=== PATIENT | male | born 1975 | race American Indian/Alaskan Native ===

== ENCOUNTER 2021-08-02 12:25 | Outpatient (CLI) | payer BC ==
--- NOTE | 2021-08-02 16:50 | XRay Report ---
XR chest routine 2V INDICATION / CLINICAL INFORMATION: ELEVATED BP. COMPARISON: None available. FINDINGS: SUPPORT DEVICES: None. HEART /PULMONARY VASCULATURE: No significant abnormality. LUNGS / PLEURA: No significant pulmonary or pleural abnormality. No pneumothorax. ADDITIONAL FINDINGS: No significant additional findings. IMPRESSION: 1. No acute findings. Signer Name: John Coates MD Signed: 08/02/2021 4:45 PM Workstation Name: [id number]
--- NOTE | 2021-08-03 10:10 | Electrocardiograph Report ---
[facility] Test Date: 2021-08-02 Test Time: 13:07:44 Pat Name: IRVING ISAACS Department: Room: Gender: M Infant Babysitter: ARLENE : 1975 Requested By: BETITO MCLEAN Order Number: [id number] Reading MD: Keegan Hagan Measurements Intervals [place] Rate: 75 P: 51 PA: 192 QRS: 69 QRSD: 80 T: 23 QT: 384 QTc: 428 Interpretive Statements Sinus rhythm Normal ECG No previous ECG available for comparison Electronically Signed On 08-03-2021 10:10:40 EST by Keegan Hagan
== END 2021-08-02 12:26 | disposition home or self-care (01) ==
LOC: CARD 12:25
PROVIDERS: ATTEND Internal Medicine
DX: R94.31 Abnormal electrocardiogram [ECG] [EKG] (principal); I10 Essential (primary) hypertension
CPT/HCPCS: 71046; 93005; 93010